=== PATIENT | male | born 1950 | race Caucasian/White ===

== ENCOUNTER 2020-10-26 14:09 | Inpatient (IN) ==
[2020-10-26] MEDS ORDERED: ZALEPLON 5 MG CAPSULE PO PRN (14:11)
[2020-10-26] MEDS ORDERED: MAGNESIUM SULF RIDER 4 GM/100 ML PREMIX IV PRN (14:11)
[2020-10-26] MEDS ORDERED: POTASSIUM CHLORIDE 20 MEQ TABLET PO PRN (14:11)
[2020-10-26] MEDS ORDERED: MAGNESIUM SULF RIDER 2 GM/50 ML PREMIX IV PRN (14:11)
[2020-10-26] MEDS ORDERED: hydrALAZINE 20 MG/1 ML VIAL IV PRN (14:11)
[2020-10-26] MEDS ORDERED: ONDANSETRON 4 MG/2 ML VIAL IV PRN (14:11)
[2020-10-26] MEDS ORDERED: ALUMINUM/MAGNES/SIMETH MAX STR 30 ML UDCUP PO PRN (14:11)
[2020-10-26] MEDS ORDERED: MORPHINE 4 MG/1 ML VIAL IV PRN (14:11)
[2020-10-26] MEDS ORDERED: BISACODYL 5 MG TABLET PO PRN (14:11)
[2020-10-26] MEDS ORDERED: NITROGLYCERIN SL 0.4 MG TABLET SL PRN (14:14)
[2020-10-26 15:59] LABS: Basophils % 0.2 % (0.0-0.8); Hematocrit 49.8 VOL% (42.0-52.0); Hemoglobin 16.4 GM/DL (14.0-18.0); Immature Granulocytes % 1.2 %; Immature Granulocytes Absolute 0.15 #; Lymphocytes # 1.8 10*3/uL (1.4-4.0); Lymphocytes % 14.4 % (21.2-54.2); Mean Corpuscular HGB Conc 32.9 GM/DL (32-36); Mean Corpuscular Volume 90.2 FL (87-102); Mean Platelet Volume 8.2 FL (9.6-12.0); Monocytes % 8.5 % (1.7-12.7); Neutrophils % 75.7 % (38.7-73.9); Platelet Count 251 T/CUMM (130-400); Red Blood Count 5.52 MC/CUMM (3.8-5.5); Red Cell Distribution Width 14.3 % (9.3-17.3); White Blood Count 12.8 T/CUMM (4-12)
[2020-10-26] MEDS: ENOXAPARIN 40 MG/0.4 ML SYRINGE SUBCUT SCH (16:07)
[2020-10-26] MEDS: PANTOPRAZOLE 40 MG TABLET PO SCH (16:07)
[2020-10-26 16:11] LABS: Albumin 3.2 G/DL (3.4-5.0); Osmolality,Calculated 272.1 MOS/KG (273-304); Potassium 4.2 MMOL/L (3.5-5.1); Total Protein 6.1 G/DL (6.4-8.2)
[2020-10-26] MEDS ORDERED: IBUPROFEN 400 MG TABLET PO PRN (20:58)
[2020-10-26] MEDS: ATORVASTATIN 80 MG TABLET PO SCH (21:32)
[2020-10-27 05:18] LABS: Basophils % 0.2 % (0.0-0.8); Eosinophils # 0.1 10*3/uL (0.0-0.87); Eosinophils % 0.8 % (0.00-10.9); Hematocrit 46.5 VOL% (42.0-52.0); Hemoglobin 15.3 GM/DL (14.0-18.0); Lymphocytes # 2.5 10*3/uL (1.4-4.0); Lymphocytes % 25.3 % (21.2-54.2); Mean Corpuscular HGB Conc 32.9 GM/DL (32-36); Mean Platelet Volume 8.4 FL (9.6-12.0); Monocytes % 9.6 % (1.7-12.7); Neutrophils % 63.1 % (38.7-73.9); Platelet Count 212 T/CUMM (130-400); Red Blood Count 5.11 MC/CUMM (3.8-5.5); Red Cell Distribution Width 14.1 % (9.3-17.3); White Blood Count 9.8 T/CUMM (4-12)
[2020-10-27 05:42] LABS: Calcium 8.8 MG/DL (8.5-10.1); Osmolality,Calculated 268.4 MOS/KG (273-304); Risk Ratio 2.64; VLDL CHOLESTEROL 23.4 MG/DL
[2020-10-27 05:50] LABS: Lymphocytes 24 % (20-55); Platelet Estimate Adequate; Segmented Neutrophils 74 % (50-85); Total Cells Counted 100
[2020-10-27] MEDS: OMEGA 3 ACID ETHYL ESTERS 1 GM CAPSULE PO SCH (08:13)
[2020-10-27] MEDS: ASPIRIN EC 81 MG TABLET PO SCH (08:13)
[2020-10-27] MEDS: PANTOPRAZOLE 40 MG TABLET PO SCH (08:14)
[2020-10-27] MEDS: METOPROLOL SUCCINATE XL 50 MG TABLET PO SCH (08:14)
[2020-10-27] MEDS: FENOFIBRATE 145 MG TABLET PO SCH (08:14)
[2020-10-27] MEDS ORDERED: MAGNESIUM SULF RIDER 2 GM/50 ML PREMIX IV PRN (09:18)
[2020-10-27] MEDS ORDERED: POTASSIUM CHLORIDE RIDER 10 MEQ/100 ML PREMIX IV PRN (09:18)
[2020-10-27] MEDS: ENOXAPARIN 40 MG/0.4 ML SYRINGE SUBCUT SCH (15:54)
[2020-10-27] MEDS: ATORVASTATIN 80 MG TABLET PO SCH (20:14)
[2020-10-28 05:19] LABS: Basophils % 0.3 % (0.0-0.8); Eosinophils # 0.2 10*3/uL (0.0-0.87); Eosinophils % 2.4 % (0.00-10.9); Hematocrit 43.9 VOL% (42.0-52.0); Hemoglobin 15.1 GM/DL (14.0-18.0); Immature Granulocytes % 0.7 %; Immature Granulocytes Absolute 0.05 #; Lymphocytes # 2.4 10*3/uL (1.4-4.0); Lymphocytes % 33.2 % (21.2-54.2); Mean Corpuscular HGB Conc 34.4 GM/DL (32-36); Mean Corpuscular Volume 87.1 FL (87-102); Mean Platelet Volume 8.6 FL (9.6-12.0); Monocytes % 9.1 % (1.7-12.7); Neutrophils % 54.3 % (38.7-73.9); Platelet Count 178 T/CUMM (130-400); Red Blood Count 5.04 MC/CUMM (3.8-5.5); Red Cell Distribution Width 13.8 % (9.3-17.3); White Blood Count 7.2 T/CUMM (4-12)
[2020-10-28 05:35] LABS: Calcium 8.1 MG/DL (8.5-10.1); Osmolality,Calculated 272.1 MOS/KG (273-304); Potassium 3.9 MMOL/L (3.5-5.1)
[2020-10-28 05:42] LABS: Platelet Estimate Adequate
[2020-10-28 05:43] LABS: Osmolality,Calculated 272.1 MOS/KG (273-304); Potassium 3.9 MMOL/L (3.5-5.1)
[2020-10-28] MEDS ORDERED: SODIUM CHLORIDE 0.9% 1,000 ML IV SCH (06:00)
[2020-10-28] MEDS: METOPROLOL SUCCINATE XL 50 MG TABLET PO SCH (08:09)
[2020-10-28] MEDS: PANTOPRAZOLE 40 MG TABLET PO SCH (09:03)
[2020-10-28] MEDS: ASPIRIN EC 81 MG TABLET PO SCH (09:03)
[2020-10-28] MEDS: FENOFIBRATE 145 MG TABLET PO SCH (09:03)
[2020-10-28] MEDS: OMEGA 3 ACID ETHYL ESTERS 1 GM CAPSULE PO SCH (09:03)
[2020-10-28] MEDS ORDERED: LIDOCAINE 1%/EPI INJ 20 ML VIAL ONE (12:04)
[2020-10-28] MEDS ORDERED: HEPARIN/NACL 0.9% 2 UNITS/ML 2,000 UNIT/1,000 ML BAG IV ONE (12:04)
[2020-10-28] MEDS ORDERED: MIDAZOLAM 2 MG/2 ML VIAL ONE ×2 (12:25→13:52)
[2020-10-28] MEDS ORDERED: NITROGLYCERIN DRIP 50 MG/250 ML BOTTLE IV ONE (12:25)
[2020-10-28] MEDS ORDERED: LIDOCAINE 1% 20 ML VIAL ONE (12:25)
[2020-10-28] MEDS ORDERED: fentaNYL 100 MCG/2 ML VIAL ONE (12:25)
[2020-10-28] MEDS ORDERED: VERAPAMIL 5 MG/2 ML VIAL ONE (12:26)
[2020-10-28] MEDS ORDERED: DIAZEPAM 5 MG TABLET PO ONE (12:30)
[2020-10-28] MEDS ORDERED: diphenhydrAMINE CAP 50 MG CAPSULE PO ONE (12:30)
[2020-10-28] MEDS ORDERED: ENOXAPARIN 60 MG/0.6 ML SYRINGE ONE (13:06)
[2020-10-28] MEDS ORDERED: HYDROmorphone 2 MG/1 ML VIAL ONE (13:52)
[2020-10-28] MEDS ORDERED: ALPRAZolam 0.5 MG TABLET PO PRN (14:04)
[2020-10-28] MEDS ORDERED: BIVALIRUDIN 250 MG VIAL IV ONE (14:27)
[2020-10-28] MEDS: ENOXAPARIN 40 MG/0.4 ML SYRINGE SUBCUT SCH (16:40)
[2020-10-28] MEDS: ATORVASTATIN 80 MG TABLET PO SCH (20:38)
[2020-10-28] MEDS: ASCORBIC ACID 500 MG TABLET PO SCH (20:38)
[2020-10-29 05:05] LABS: Basophils % 0.1 % (0.0-0.8); Eosinophils # 0.1 10*3/uL (0.0-0.87); Eosinophils % 1.8 % (0.00-10.9); Hematocrit 41.7 VOL% (42.0-52.0); Hemoglobin 13.7 GM/DL (14.0-18.0); Immature Granulocytes % 0.7 %; Immature Granulocytes Absolute 0.05 #; Lymphocytes # 2.6 10*3/uL (1.4-4.0); Lymphocytes % 35.6 % (21.2-54.2); Mean Corpuscular HGB Conc 32.9 GM/DL (32-36); Mean Corpuscular Volume 90.1 FL (87-102); Mean Platelet Volume 8.7 FL (9.6-12.0); Monocytes % 8.8 % (1.7-12.7); Platelet Count 176 T/CUMM (130-400); Red Blood Count 4.63 MC/CUMM (3.8-5.5); Red Cell Distribution Width 13.7 % (9.3-17.3); White Blood Count 7.3 T/CUMM (4-12)
[2020-10-29 05:30] LABS: Eosinophils 2 % (0-10); Lymphocytes 29 % (20-55); Platelet Estimate Adequate; Segmented Neutrophils 63 % (50-85); Total Cells Counted 100
[2020-10-29 05:32] LABS: Osmolality,Calculated 276.7 MOS/KG (273-304); Potassium 4.1 MMOL/L (3.5-5.1)
[2020-10-29] MEDS: ASPIRIN EC 81 MG TABLET PO SCH (08:12)
[2020-10-29] MEDS: FENOFIBRATE 145 MG TABLET PO SCH (08:12)
[2020-10-29] MEDS: ASCORBIC ACID 500 MG TABLET PO SCH (08:13)
[2020-10-29] MEDS: OMEGA 3 ACID ETHYL ESTERS 1 GM CAPSULE PO SCH (08:13)
[2020-10-29] MEDS: PANTOPRAZOLE 40 MG TABLET PO SCH (08:13)
[2020-10-29] MEDS: METOPROLOL SUCCINATE XL 50 MG TABLET PO SCH (08:14)
[2020-10-29 11:13] VITALS: BP 97/67
== END 2020-10-29 13:03 | disposition home or self-care (01) | DRG 287 ==
LOC: N.TELES
PROVIDERS: ADMIT Internal Medicine Interventional Cardiology; ATTEND Internal Medicine Interventional Cardiology
PROC: CLCCHCL (ICD-10-PCS; 2020-10-28 13:15)

== ENCOUNTER 2020-11-10 07:00 | Inpatient (IN) ==
[2020-11-10] MEDS ORDERED: DEXTROSE 50% 25 GM/50 ML VIAL IV PRN (08:57)
[2020-11-10] MEDS ORDERED: GLUCAGON 1 MG VIAL IM PRN (08:57)
[2020-11-10 09:46] LABS: ABG Base Excess 1.2 MMOL/L (-2.5-2.5); ABG HCO3 25.4 MMOL/L (20-26); ABG Oxygen Saturation 97.1 % (95-100); ABG PCO2 39.1 MM HG (35-48); ABG PH 7.422 (7.35-7.45); ABG PO2 89.9 MM HG (80-95); ABG TCO2 21.7 MMOL/L (23-27); Allen Test Positive
[2020-11-10] MEDS ORDERED: NITROGLYCERIN SL 0.4 MG TABLET SL PRN (10:04)
[2020-11-10 10:08] LABS: Basophils % 0.2 % (0.0-0.8); Eosinophils # 0.1 10*3/uL (0.0-0.87); Eosinophils % 2.1 % (0.00-10.9); Hemoglobin 15.1 GM/DL (14.0-18.0); Immature Granulocytes % 0.3 %; Immature Granulocytes Absolute 0.02 #; Lymphocytes # 3.4 10*3/uL (1.4-4.0); Lymphocytes % 50.4 % (21.2-54.2); Mean Corpuscular HGB Conc 33.6 GM/DL (32-36); Mean Corpuscular Volume 90.2 FL (87-102); Mean Platelet Volume 8.3 FL (9.6-12.0); Monocytes % 7.4 % (1.7-12.7); Neutrophils % 39.6 % (38.7-73.9); Platelet Count 212 T/CUMM (130-400); Red Blood Count 4.99 MC/CUMM (3.8-5.5); Red Cell Distribution Width 14.5 % (9.3-17.3); White Blood Count 6.7 T/CUMM (4-12)
[2020-11-10 10:32] LABS: Albumin 3.6 G/DL (3.4-5.0); Bilirubin,Total 0.5 MG/DL (0.2-1.0); Calcium 9.5 MG/DL (8.5-10.1); Osmolality,Calculated 278.4 MOS/KG (273-304); Potassium 4.3 MMOL/L (3.5-5.1); Total Protein 7.1 G/DL (6.4-8.2)
[2020-11-10] MEDS: CHLORHEXIDINE 0.12% ORAL RINSE 60 ML BOTTLE SWISH/SPIT SCH ×2 (11:44→20:50)
[2020-11-10] MEDS: CHLORHEXIDINE 4% SOLN 118 ML BOTTLE TOP SCH ×3 (11:44→22:40)
[2020-11-10] MEDS ORDERED: CLORAZEPATE 7.5 MG TABLET PO PRN (13:36)
[2020-11-10] MEDS ORDERED: MORPHINE 4 MG/1 ML VIAL IV PRN (13:37)
[2020-11-10] MEDS ORDERED: MAGNESIUM SULF RIDER 2 GM/50 ML PREMIX IV PRN (14:35)
[2020-11-10] MEDS ORDERED: MAGNESIUM SULF RIDER 4 GM/100 ML PREMIX IV PRN (14:35)
[2020-11-10] MEDS: SODIUM CHLORIDE 0.9% 1,000 ML IV SCH (17:11)
[2020-11-10] MEDS: ASCORBIC ACID 500 MG TABLET PO SCH (20:49)
[2020-11-10] MEDS ORDERED: FENOFIBRATE 145 MG TABLET PO SCH (21:00)
[2020-11-10] MEDS ORDERED: ATORVASTATIN 80 MG TABLET PO SCH (21:00)
[2020-11-10] MEDS ORDERED: PANTOPRAZOLE 40 MG TABLET PO SCH (21:00)
[2020-11-10] MEDS ORDERED: ASPIRIN CHEW 81 MG TABLET PO SCH (21:00)
[2020-11-10] MEDS ORDERED: OMEGA 3 ACID ETHYL ESTERS 1 GM CAPSULE PO SCH (21:00)
[2020-11-11] MEDS ORDERED: PAPAVERINE 60 MG/2 ML VIAL ONE (04:21)
[2020-11-11] MEDS ORDERED: VANCOMYCIN 500 MG VIAL ONE (04:22)
[2020-11-11] MEDS ORDERED: VANCOMYCIN 1,000 MG VIAL ONE (04:22)
[2020-11-11] MEDS ORDERED: CEFUROXIME INJ 1,500 MG in SODIUM CHLORIDE 0.9% 100 ML IV ONE (05:00)
[2020-11-11] MEDS ORDERED: DIAZEPAM 5 MG TABLET PO ONE (05:06)
[2020-11-11] MEDS ORDERED: FAMOTIDINE 20 MG TABLET PO ONE (05:07)
[2020-11-11] MEDS ORDERED: MIDAZOLAM 10 MG/2 ML VIAL ONE (05:43)
[2020-11-11] MEDS ORDERED: SUFentanil 250 MCG/5 ML AMP ONE (05:44)
[2020-11-11] MEDS ORDERED: SODIUM CHLORIDE 0.9% 1,000 ML IV ONE (05:55)
[2020-11-11] MEDS ORDERED: LIDOCAINE 2% 5 ML VIAL ONE ×2 (05:55→10:52)
[2020-11-11] MEDS ORDERED: SEVOFLURANE 1 UNIT/15 MINUTE INH ONE ×4 (05:55→11:08)
[2020-11-11] MEDS ORDERED: ETOMIDATE 40 MG/20 ML VIAL IV ONE (05:55)
[2020-11-11] MEDS ORDERED: LACTATED RINGERS 0 ML IV ONE (05:55)
[2020-11-11] MEDS ORDERED: HEPARIN/NACL 0.9% 2 UNITS/ML 1,000 UNIT/500 ML BAG IV ONE (05:55)
[2020-11-11] MEDS ORDERED: PHENYLEPHRINE 1 MG/10 ML SYRINGE IV ONE (05:55)
[2020-11-11] MEDS ORDERED: PHENYLEPHRINE DRIP 20 MG/250 ML PREMIX IV ONE (05:55)
[2020-11-11] MEDS ORDERED: AMINOCAPROIC ACID 5,000 MG/20 ML VIAL ONE (05:55)
[2020-11-11] MEDS ORDERED: VECURONIUM 10 MG VIAL IV ONE (05:55)
[2020-11-11 07:55] LABS: ABG Base Excess 1.6 MMOL/L (-2.5-2.5); ABG HCO3 25.8 MMOL/L (20-26); ABG PCO2 34.1 MM HG (35-48); ABG PH 7.468 (7.35-7.45); ABG TCO2 21.5 MMOL/L (23-27); Glucose Heart Surgery 112 MG/DL (74-106); Ionized Calcium Arterial 1.13 MMOL/L (1.21-1.46); PCO2 Patient Temp Arterial 34.1 MMHG; PH Patient Temp Arterial 7.468; Patient Temperature 37 CELCIUS; Potassium Heart/CVR 3.4 MMOL/L (3.5-5.1); Sodium Heart/CVR 140 MMOL/L (135-145)
[2020-11-11 08:17] LABS: Bilirubin,Urine Negative (Negative); Blood, Urine Negative (Negative); Glucose,Urine (UA) Negative (Negative); Ketones,Urine Negative (Negative); Mucus,Urine Occasional /LPF (Occasional); Nitrite,Urine Negative (Negative); Protein,Urine Negative; RBC,Urine 1 /HPF (0-4); Squamous Epithelial Cell,Urine Occasional /HPF (0-10); Urine Appearance CLEAR (Clear); Urine Color Yellow (Yellow); Urine Specific Gravity 1.008 (1.001-1.035); Urine Urobilinogen < 2.0 EU/DL (0.2-1.0)
[2020-11-11] MEDS ORDERED: MIDAZOLAM 2 MG/2 ML VIAL ONE ×3 (08:25→08:26)
[2020-11-11 09:23] LABS: Hematocrit Heart Surgery 24.1 PERCENT (42-52); Hemoglobin Heart Surgery 7.7 G/DL (14.0-18.0); PH Patient Temp Venous 7.516; PO2 Patient Temp Venous 43.4 MM HG; Potassium Heart/CVR 4.4 MMOL/L (3.5-5.1); VBG Base Excess 0.3 MEQ/L (0-4); VBG HCO3 24.6 MEQ/L (24-28); VBG Oxygen Saturation 88.5 %; VBG PCO2 32.3 MMHG (41-51); VBG PH 7.471; VBG PO2 53.1 MMHG (17-40)
[2020-11-11] MEDS ORDERED: POTASSIUM CHLORIDE RIDER 20 MEQ/100 ML PREMIX IV ONE (09:25)
[2020-11-11] MEDS ORDERED: PHENYLEPHRINE DRIP 40 MG/250 ML PREMIX IV ONE (09:26)
[2020-11-11] MEDS ORDERED: ALBUMIN 5% 25.0 GM/500 ML VIAL IV ONE (09:26)
[2020-11-11] MEDS ORDERED: NITROGLYCERIN DRIP 50 MG/250 ML BOTTLE IV ONE (09:39)
[2020-11-11 09:55] LABS: Hematocrit Heart Surgery 26.5 PERCENT (42-52); Hemoglobin Heart Surgery 8.5 G/DL (14.0-18.0); PCO2 Patient Temp Venous 26.8 MM HG; PH Patient Temp Venous 7.541; PO2 Patient Temp Venous 38.9 MM HG; Potassium Heart/CVR 3.8 MMOL/L (3.5-5.1); VBG Base Excess 1.1 MEQ/L (0-4); VBG HCO3 25.2 MEQ/L (24-28); VBG Oxygen Saturation 85.5 %; VBG PCO2 30.9 MMHG (41-51); VBG PH 7.496; VBG PO2 47.9 MMHG (17-40); VBG Total CO2 22.1 MMOL/L
[2020-11-11 10:25] LABS: Hematocrit Heart Surgery 28.6 PERCENT (42-52); Hemoglobin Heart Surgery 9.2 G/DL (14.0-18.0); PCO2 Patient Temp Venous 32.6 MM HG; PH Patient Temp Venous 7.461; PO2 Patient Temp Venous 43.1 MM HG; Potassium Heart/CVR 3.9 MMOL/L (3.5-5.1); VBG Base Excess -0.1 MEQ/L (0-4); VBG HCO3 24.1 MEQ/L (24-28); VBG Oxygen Saturation 79.3 %; VBG PCO2 32.6 MMHG (41-51); VBG PH 7.461; VBG PO2 43.1 MMHG (17-40); VBG Total CO2 21.4 MMOL/L
[2020-11-11] MEDS ORDERED: THROMBIN TOPICAL (RECOMBINANT) 5,000 UNIT VIAL TOP ONE (10:25)
[2020-11-11] MEDS ORDERED: CALCIUM CHLORIDE 1,000 MG/10 ML VIAL IV ONE (10:42)
[2020-11-11] MEDS ORDERED: DEXTROSE 5% KCL 20 MEQ 20 MEQ/1,000 ML BAG IV ONE (10:52)
[2020-11-11] MEDS ORDERED: PROTAMINE SULFATE 250 MG/25 ML VIAL IV ONE (10:52)
[2020-11-11] MEDS ORDERED: ALBUMIN 25% 25 GM/100 ML VIAL IV ONE (10:52)
[2020-11-11] MEDS ORDERED: methylPREDNISolone SOD SUC 1,000 MG/8 ML VIAL ONE (10:52)
[2020-11-11] MEDS ORDERED: MAGNESIUM SULFATE 5 GM/10 ML VIAL IV ONE (10:52)
[2020-11-11] MEDS ORDERED: MANNITOL 100 GM/500 ML BAG IV ONE (10:52)
[2020-11-11 10:53] LABS: ABG Base Excess -0.7 MMOL/L (-2.5-2.5); ABG HCO3 23.9 MMOL/L (20-26); ABG PCO2 35.6 MM HG (35-48); ABG PH 7.423 (7.35-7.45); ABG TCO2 20.9 MMOL/L (23-27); Glucose Heart Surgery 290 MG/DL (74-106); Hematocrit Heart Surgery 33.2 PERCENT (42-52); Hemoglobin Heart Surgery 10.7 G/DL (14.0-18.0); Ionized Calcium Arterial 1.25 MMOL/L (1.21-1.46); PCO2 Patient Temp Arterial 35.6 MMHG; PH Patient Temp Arterial 7.423; Patient Temperature 37 CELCIUS; Potassium Heart/CVR 3.4 MMOL/L (3.5-5.1); Sodium Heart/CVR 132 MMOL/L (135-145)
[2020-11-11] MEDS ORDERED: PROTAMINE SULFATE 50 MG/5 ML VIAL IV ONE (10:53)
[2020-11-11] MEDS ORDERED: HEPARIN 10,000 UNIT/10 ML VIAL ONE (10:53)
[2020-11-11] MEDS ORDERED: FUROSEMIDE 20 MG/2 ML VIAL ONE (10:53)
[2020-11-11] MEDS ORDERED: SODIUM BICARBONATE 50 MEQ/50 ML VIAL IV ONE (10:53)
[2020-11-11] MEDS: SODIUM CHLORIDE 0.9% 1,000 ML IV SCH (11:05)
[2020-11-11] MEDS: CHLORHEXIDINE 0.12% ORAL RINSE 60 ML BOTTLE SWISH/SPIT SCH ×2 (11:05→20:37)
[2020-11-11] MEDS: ASCORBIC ACID 500 MG TABLET PO SCH (11:05)
[2020-11-11] MEDS ORDERED: LACTATED RINGERS 1,000 ML IV ONE (11:08)
[2020-11-11] MEDS ORDERED: ESMOLOL 100 MG/10 ML VIAL IV ONE (11:20)
[2020-11-11] MEDS ORDERED: MIDAZOLAM 2 MG/2 ML VIAL IV PRN (11:31)
[2020-11-11] MEDS ORDERED: LACTATED RINGERS 250 ML IV PRN (11:31)
[2020-11-11] MEDS ORDERED: MIDAZOLAM 10 MG/2 ML VIAL IV PRN (11:31)
[2020-11-11] MEDS ORDERED: DEXTROSE 50% 25 GM/50 ML VIAL IV PRN ×2 (11:31)
[2020-11-11] MEDS ORDERED: MAGNESIUM SULF RIDER 4 GM/100 ML PREMIX IV PRN (11:31)
[2020-11-11] MEDS ORDERED: INSULIN REGULAR 100 UNIT/ML IV ONE (11:31)
[2020-11-11] MEDS ORDERED: VECURONIUM 10 MG VIAL IV PRN ×2 (11:31)
[2020-11-11] MEDS ORDERED: MAGNESIUM SULF RIDER 2 GM/50 ML PREMIX IV PRN (11:31)
[2020-11-11] MEDS ORDERED: POTASSIUM CHLORIDE RIDER 10 MEQ/100 ML PREMIX IV PRN (11:31)
[2020-11-11] MEDS ORDERED: NITROPRUSSIDE 100 MG in DEXTROSE 5% 250 ML IV PRN (11:31)
[2020-11-11] MEDS ORDERED: INSULIN REGULAR 100 UNIT/ML IV PRN (11:31)
[2020-11-11] MEDS ORDERED: MORPHINE 10 MG/1 ML VIAL IV PRN (11:31)
[2020-11-11] MEDS ORDERED: CHLORHEXIDINE 4% SOLN 118 ML BOTTLE TOP PRN (11:31)
[2020-11-11] MEDS ORDERED: INSULIN REGULAR DRIP 100 ML IV SCH (11:31)
[2020-11-11] MEDS ORDERED: ACETAMINOPHEN 650 MG SUPP RECTAL PRN (11:31)
[2020-11-11] MEDS ORDERED: CALCIUM CHLORIDE 1,000 MG/10 ML SYRINGE IV PRN (11:31)
[2020-11-11] MEDS: PHENYLEPHRINE DRIP 40 MG/250 ML PREMIX IV PRN (11:35)
[2020-11-11] MEDS: SODIUM CHLORIDE 0.45% 1,000 ML IV SCH ×2 (11:35)
[2020-11-11] MEDS: LACTATED RINGERS 1,000 ML IV PRN ×3 (11:35→15:00)
[2020-11-11] MEDS: POTASSIUM CHLORIDE RIDER 20 MEQ/100 ML PREMIX IV PRN ×7 (12:15→23:13)
[2020-11-11 12:20] LABS: ABG Base Excess -0.3 MMOL/L (-2.5-2.5); ABG HCO3 24.2 MMOL/L (20-26); ABG PCO2 34.1 MM HG (35-48); ABG PH 7.442 (7.35-7.45); ABG TCO2 20.5 MMOL/L (23-27); Glucose Heart Surgery 232 MG/DL (74-106); Hematocrit Heart Surgery 37.6 PERCENT (42-52); Hemoglobin Heart Surgery 12.2 G/DL (14.0-18.0); Potassium Heart/CVR 2.9 MMOL/L (3.5-5.1)
[2020-11-11 12:23] LABS: Eosinophils # 0.1 10*3/uL (0.0-0.87); Eosinophils % 1.1 % (0.00-10.9); Hematocrit 32.6 VOL% (42.0-52.0); Immature Granulocytes % 0.7 %; Immature Granulocytes Absolute 0.06 #; Mean Corpuscular HGB Conc 33.7 GM/DL (32-36); Mean Corpuscular Volume 89.6 FL (87-102); Mean Platelet Volume 8.3 FL (9.6-12.0); Neutrophils % 69.2 % (38.7-73.9); Platelet Count 179 T/CUMM (130-400); Red Blood Count 3.64 MC/CUMM (3.8-5.5); Red Cell Distribution Width 14.3 % (9.3-17.3); White Blood Count 8.4 T/CUMM (4-12)
[2020-11-11 12:35] LABS: INR 1.2; PT Patient Result 13.5 SECS (10.5-12.0); Partial Thromboplastin Time 24.5 SECS (23.9-33.8)
[2020-11-11 12:44] LABS: Albumin 2.8 G/DL (3.4-5.0); Bilirubin,Total 1.7 MG/DL (0.2-1.0); Calcium 7.4 MG/DL (8.5-10.1); Osmolality,Calculated 281.5 MOS/KG (273-304); Total Protein 4.7 G/DL (6.4-8.2)
[2020-11-11 12:47] LABS: High Sensitive Troponin I* 5328.2 ng/L (0-78)
[2020-11-11] MEDS: ALBUMIN 5% 12.5 GM/250 ML VIAL IV PRN ×2 (13:15→14:00)
[2020-11-11 14:05] LABS: ABG Base Excess 0.3 MMOL/L (-2.5-2.5); ABG HCO3 24.8 MMOL/L (20-26); ABG PCO2 30.5 MM HG (35-48); ABG PH 7.487 (7.35-7.45); ABG TCO2 20.8 MMOL/L (23-27); Glucose Heart Surgery 190 MG/DL (74-106); Hematocrit Heart Surgery 31.6 PERCENT (42-52); Hemoglobin Heart Surgery 10.2 G/DL (14.0-18.0); Potassium Heart/CVR 3.5 MMOL/L (3.5-5.1)
[2020-11-11] MEDS: KETOROLAC 30 MG/1 ML VIAL IV SCH ×2 (15:15→20:34)
[2020-11-11 16:18] LABS: ABG Base Excess -5.5 MMOL/L (-2.5-2.5); ABG HCO3 19.9 MMOL/L (20-26); ABG Oxygen Saturation 99.5 % (95-100); ABG PCO2 31.5 MM HG (35-48); ABG PH 7.383 (7.35-7.45); ABG TCO2 17.4 MMOL/L (23-27); Glucose Heart Surgery 208 MG/DL (74-106); Hematocrit Heart Surgery 26.3 PERCENT (42-52); Hemoglobin Heart Surgery 8.5 G/DL (14.0-18.0); Potassium Heart/CVR 3.3 MMOL/L (3.5-5.1)
[2020-11-11 17:42] LABS: ABG Base Excess -6.5 MMOL/L (-2.5-2.5); ABG HCO3 19.2 MMOL/L (20-26); ABG Oxygen Saturation 99.2 % (95-100); ABG PCO2 36.1 MM HG (35-48); ABG PH 7.327 (7.35-7.45); Glucose Heart Surgery 239 MG/DL (74-106); Hematocrit Heart Surgery 34.7 PERCENT (42-52); Hemoglobin Heart Surgery 11.3 G/DL (14.0-18.0); Potassium Heart/CVR 4.2 MMOL/L (3.5-5.1)
[2020-11-11] MEDS: MORPHINE 4 MG/1 ML VIAL IV PRN (17:44)
[2020-11-11 19:00] LABS: Hematocrit Heart Surgery 33.9 PERCENT (42-52); PCO2 Patient Temp Venous 39.8 MM HG; PH Patient Temp Venous 7.265; PO2 Patient Temp Venous 54.1 MM HG; Potassium Heart/CVR 3.7 MMOL/L (3.5-5.1); VBG Base Excess -8.5 MEQ/L (0-4); VBG HCO3 17.4 MEQ/L (24-28); VBG Oxygen Saturation 82.8 %; VBG PCO2 39.8 MMHG (41-51); VBG PH 7.265; VBG PO2 54.1 MMHG (17-40); VBG Total CO2 16.6 MMOL/L
[2020-11-11 20:11] LABS: ABG Base Excess -7.8 MMOL/L (-2.5-2.5); ABG HCO3 18.2 MMOL/L (20-26); ABG Oxygen Saturation 98.9 % (95-100); ABG PCO2 36.3 MM HG (35-48); ABG PH 7.302 (7.35-7.45); ABG TCO2 16.2 MMOL/L (23-27); Glucose Heart Surgery 190 MG/DL (74-106); Hematocrit Heart Surgery 35.3 PERCENT (42-52); Hemoglobin Heart Surgery 11.5 G/DL (14.0-18.0); Potassium Heart/CVR 3.7 MMOL/L (3.5-5.1)
[2020-11-11] MEDS: CEFUROXIME INJ 1,500 MG in SODIUM CHLORIDE 0.9% 100 ML IV SCH (20:24)
[2020-11-11 20:34] LABS: CKMB % 3.5 %
[2020-11-11 20:36] LABS: High Sensitive Troponin I* 3891.1 ng/L (0-78)
[2020-11-11 22:01] LABS: ABG Base Excess -5.6 MMOL/L (-2.5-2.5); ABG HCO3 19.9 MMOL/L (20-26); ABG Oxygen Saturation 99.4 % (95-100); ABG PCO2 34.9 MM HG (35-48); ABG PH 7.351 (7.35-7.45); ABG TCO2 17.4 MMOL/L (23-27); Glucose Heart Surgery 157 MG/DL (74-106); Hematocrit Heart Surgery 34.7 PERCENT (42-52); Hemoglobin Heart Surgery 11.3 G/DL (14.0-18.0); Potassium Heart/CVR 4.7 MMOL/L (3.5-5.1)
[2020-11-11 23:09] LABS: ABG Base Excess -3.9 MMOL/L (-2.5-2.5); ABG HCO3 21.2 MMOL/L (20-26); ABG Oxygen Saturation 99.2 % (95-100); ABG PCO2 36.6 MM HG (35-48); ABG PH 7.366 (7.35-7.45); ABG TCO2 18.8 MMOL/L (23-27); Glucose Heart Surgery 139 MG/DL (74-106); Hematocrit Heart Surgery 34.6 PERCENT (42-52); Hemoglobin Heart Surgery 11.2 G/DL (14.0-18.0); Potassium Heart/CVR 4.1 MMOL/L (3.5-5.1)
[2020-11-12] MEDS: ALBUMIN 5% 12.5 GM/250 ML VIAL IV PRN (00:03)
[2020-11-12 00:08] LABS: ABG Base Excess -4.2 MMOL/L (-2.5-2.5); ABG Oxygen Saturation 99.5 % (95-100); ABG PCO2 35.8 MM HG (35-48); ABG PH 7.367 (7.35-7.45); ABG TCO2 18.4 MMOL/L (23-27); Glucose Heart Surgery 125 MG/DL (74-106); Hematocrit Heart Surgery 35.1 PERCENT (42-52); Hemoglobin Heart Surgery 11.4 G/DL (14.0-18.0); Potassium Heart/CVR 4.2 MMOL/L (3.5-5.1)
[2020-11-12] MEDS: MORPHINE 4 MG/1 ML VIAL IV PRN (00:51)
[2020-11-12] MEDS: LACTATED RINGERS 1,000 ML IV PRN ×2 (01:00→06:54)
[2020-11-12] MEDS ORDERED: AMIODARONE INJ 50 MG in DEXTROSE 5% 100 ML IV ONE (01:03)
[2020-11-12] MEDS ORDERED: AMIODARONE INJ 450 MG in DEXTROSE 5% 241 ML IV SCH (01:30)
[2020-11-12] MEDS: oxyCODONE/ACETAMINOPHEN 5-325 MG TABLET PO PRN ×2 (01:58→20:44)
[2020-11-12 02:04] LABS: ABG Base Excess -2.5 MMOL/L (-2.5-2.5); ABG HCO3 22.3 MMOL/L (20-26); ABG Oxygen Saturation 98.5 % (95-100); ABG PCO2 37.3 MM HG (35-48); ABG PH 7.383 (7.35-7.45); ABG TCO2 20.2 MMOL/L (23-27); Glucose Heart Surgery 112 MG/DL (74-106); Hematocrit Heart Surgery 31.3 PERCENT (42-52); Hemoglobin Heart Surgery 10.1 G/DL (14.0-18.0); Potassium Heart/CVR 4.1 MMOL/L (3.5-5.1)
[2020-11-12] MEDS: POTASSIUM CHLORIDE RIDER 20 MEQ/100 ML PREMIX IV PRN ×2 (02:55→05:48)
[2020-11-12] MEDS: KETOROLAC 30 MG/1 ML VIAL IV SCH ×4 (02:56→20:45)
[2020-11-12] MEDS ORDERED: HYDROmorphone 2 MG/1 ML VIAL IV PRN (03:50)
[2020-11-12] MEDS ORDERED: oxyCODONE/ACETAMINOPHEN 5-325 MG TABLET PO ONE (04:10)
[2020-11-12] MEDS ORDERED: FUROSEMIDE 40 MG/4 ML VIAL IV ONE (04:41)
[2020-11-12 05:08] LABS: ABG Base Excess -2.9 MMOL/L (-2.5-2.5); ABG HCO3 22.1 MMOL/L (20-26); ABG Oxygen Saturation 96.9 % (95-100); ABG PCO2 39.1 MM HG (35-48); ABG PO2 100.9 MM HG (80-95); ABG TCO2 23.3 MMOL/L (23-27); Glucose Heart Surgery 129 MG/DL (74-106); Potassium Heart/CVR 4.4 MMOL/L (3.5-5.1)
[2020-11-12 05:13] LABS: Basophils % 0.1 % (0.0-0.8); Hematocrit 29.9 VOL% (42.0-52.0); Hemoglobin 10.4 GM/DL (14.0-18.0); Immature Granulocytes % 0.6 %; Immature Granulocytes Absolute 0.08 #; Lymphocytes # 1.4 10*3/uL (1.4-4.0); Lymphocytes % 9.5 % (21.2-54.2); Mean Corpuscular HGB Conc 34.8 GM/DL (32-36); Mean Corpuscular Volume 88.5 FL (87-102); Mean Platelet Volume 8.6 FL (9.6-12.0); Neutrophils % 81.8 % (38.7-73.9); Platelet Count 176 T/CUMM (130-400); Red Blood Count 3.38 MC/CUMM (3.8-5.5); Red Cell Distribution Width 15.1 % (9.3-17.3); White Blood Count 14.4 T/CUMM (4-12)
[2020-11-12 05:38] LABS: CKMB % 2.6 %
[2020-11-12 05:39] LABS: High Sensitive Troponin I* 2714.2 ng/L (0-78)
[2020-11-12 05:40] LABS: Albumin 3.2 G/DL (3.4-5.0); Bilirubin,Direct 0.43 MG/DL (0.0-0.20); Bilirubin,Total 1.1 MG/DL (0.2-1.0); Calcium 7.5 MG/DL (8.5-10.1); Osmolality,Calculated 281.3 MOS/KG (273-304); Potassium 4.6 MMOL/L (3.5-5.1); Total Protein 4.8 G/DL (6.4-8.2)
[2020-11-12 05:43] LABS: Anisocytosis 1+; Band Neutrophils 31 % (0-10); Lymphocytes 11 % (20-55); Platelet Estimate Normal; Segmented Neutrophils 56 % (50-85); Total Cells Counted 100
[2020-11-12] MEDS ORDERED: DEXTROSE 50% 25 GM/50 ML VIAL IV PRN (06:22)
[2020-11-12] MEDS ORDERED: GLUCAGON 1 MG VIAL IM PRN (06:22)
[2020-11-12] MEDS: CEFUROXIME INJ 1,500 MG in SODIUM CHLORIDE 0.9% 100 ML IV SCH ×2 (07:50→20:03)
[2020-11-12] MEDS: ONDANSETRON 4 MG/2 ML VIAL IV PRN ×2 (11:15→17:48)
[2020-11-12] MEDS: PHENYLEPHRINE DRIP 40 MG/250 ML PREMIX IV PRN (12:00)
[2020-11-12] MEDS: ASCORBIC ACID 500 MG TABLET PO SCH ×2 (12:15→20:44)
[2020-11-12] MEDS: ASPIRIN EC 325 MG TABLET PO SCH (12:15)
[2020-11-12] MEDS: AMIODARONE 200 MG TABLET PO SCH ×2 (12:15→20:43)
[2020-11-12 13:22] LABS: High Sensitive Troponin I* 2197.6 ng/L (0-78)
[2020-11-12] MEDS: INSULIN REGULAR 100 UNIT/ML SUBCUT SCH ×3 (16:45→20:44)
[2020-11-12] MEDS: CHLORHEXIDINE 0.12% ORAL RINSE 60 ML BOTTLE SWISH/SPIT SCH ×2 (16:46→20:44)
[2020-11-12] MEDS: SODIUM CHLORIDE 0.45% 1,000 ML IV SCH ×2 (16:48)
[2020-11-12] MEDS ORDERED: ZALEPLON 5 MG CAPSULE PO PRN (20:53)
[2020-11-13] MEDS: PHENYLEPHRINE DRIP 40 MG/250 ML PREMIX IV PRN (01:01)
[2020-11-13] MEDS: KETOROLAC 30 MG/1 ML VIAL IV SCH ×4 (03:12→20:29)
[2020-11-13 05:07] LABS: Basophils % 0.1 % (0.0-0.8); Eosinophils % 0.1 % (0.00-10.9); Hematocrit 30.5 VOL% (42.0-52.0); Hemoglobin 9.8 GM/DL (14.0-18.0); Immature Granulocytes % 0.8 %; Immature Granulocytes Absolute 0.13 #; Lymphocytes # 3.1 10*3/uL (1.4-4.0); Lymphocytes % 19.2 % (21.2-54.2); Mean Corpuscular HGB Conc 32.1 GM/DL (32-36); Mean Corpuscular Volume 92.4 FL (87-102); Mean Platelet Volume 8.6 FL (9.6-12.0); Monocytes % 7.1 % (1.7-12.7); Neutrophils % 72.7 % (38.7-73.9); Platelet Count 187 T/CUMM (130-400); Red Cell Distribution Width 15.3 % (9.3-17.3)
[2020-11-13 05:25] LABS: Albumin 2.8 G/DL (3.4-5.0); Bilirubin,Direct 0.29 MG/DL (0.0-0.20); Bilirubin,Total 0.7 MG/DL (0.2-1.0); Calcium 7.3 MG/DL (8.5-10.1); Osmolality,Calculated 279.5 MOS/KG (273-304); Potassium 4.6 MMOL/L (3.5-5.1); Total Protein 5.2 G/DL (6.4-8.2)
[2020-11-13 05:31] LABS: Band Neutrophils 2 % (0-10); Lymphocytes 16 % (20-55); Segmented Neutrophils 79 % (50-85); Total Cells Counted 100
[2020-11-13 05:32] LABS: Microcytosis 1+
[2020-11-13] MEDS ORDERED: FUROSEMIDE 40 MG/4 ML VIAL IV ONE (06:00)
[2020-11-13] MEDS: INSULIN REGULAR 100 UNIT/ML SUBCUT SCH ×2 (08:09→12:34)
[2020-11-13] MEDS: AMIODARONE 200 MG TABLET PO SCH ×2 (08:22→20:29)
[2020-11-13] MEDS: CHLORHEXIDINE 0.12% ORAL RINSE 60 ML BOTTLE SWISH/SPIT SCH ×2 (08:22→20:29)
[2020-11-13] MEDS: ASCORBIC ACID 500 MG TABLET PO SCH ×2 (08:22→20:29)
[2020-11-13] MEDS: ASPIRIN EC 325 MG TABLET PO SCH (08:22)
[2020-11-13] MEDS ORDERED: METOCLOPRAMIDE 10 MG/2 ML VIAL IV SCH (09:00)
[2020-11-13] MEDS ORDERED: ONDANSETRON 4 MG/2 ML VIAL IV PRN (12:30)
[2020-11-13] MEDS ORDERED: SODIUM CHLOR 0.45% KCL 20 MEQ 20 MEQ/1,000 ML BAG IV SCH (12:30)
[2020-11-13] MEDS ORDERED: ALUMINUM/MAGNES/SIMETH MAX STR 30 ML UDCUP PO PRN (12:30)
[2020-11-13] MEDS ORDERED: GLUCAGON 1 MG VIAL IM PRN (12:30)
[2020-11-13] MEDS ORDERED: MAGNESIUM SULF RIDER 4 GM/100 ML PREMIX IV PRN (12:30)
[2020-11-13] MEDS ORDERED: DEXTROSE 50% 25 GM/50 ML VIAL IV PRN (12:30)
[2020-11-13] MEDS ORDERED: ACETAMINOPHEN 325 MG TABLET PO PRN (12:30)
[2020-11-13] MEDS ORDERED: MAGNESIUM HYDROXIDE SUSP 30 ML UDCUP PO PRN (12:30)
[2020-11-13] MEDS ORDERED: MAGNESIUM SULF RIDER 2 GM/50 ML PREMIX IV PRN (12:30)
[2020-11-13] MEDS: METOCLOPRAMIDE 10 MG/2 ML VIAL IV SCH ×2 (12:44→17:38)
[2020-11-13] MEDS: ATORVASTATIN 80 MG TABLET PO SCH (20:29)
[2020-11-14] MEDS: METOCLOPRAMIDE 10 MG/2 ML VIAL IV SCH ×2 (00:30→07:19)
[2020-11-14] MEDS ORDERED: LOPERAMIDE 2 MG CAPSULE PO ONE (01:28)
[2020-11-14] MEDS ORDERED: AMIODARONE INJ 100 MG in DEXTROSE 5% 100 ML IV ONE (01:29)
[2020-11-14] MEDS ORDERED: AMIODARONE INJ 450 MG in DEXTROSE 5% 241 ML IV SCH ×3 (01:30→21:00)
[2020-11-14] MEDS: KETOROLAC 30 MG/1 ML VIAL IV SCH ×4 (03:14→21:22)
[2020-11-14 04:48] LABS: Basophils % 0.1 % (0.0-0.8); Eosinophils # 0.2 10*3/uL (0.0-0.87); Eosinophils % 1.6 % (0.00-10.9); Hematocrit 32.6 VOL% (42.0-52.0); Hemoglobin 10.9 GM/DL (14.0-18.0); Immature Granulocytes % 0.4 %; Immature Granulocytes Absolute 0.04 #; Lymphocytes # 2.5 10*3/uL (1.4-4.0); Lymphocytes % 23.8 % (21.2-54.2); Mean Corpuscular HGB Conc 33.4 GM/DL (32-36); Mean Corpuscular Volume 90.1 FL (87-102); Mean Platelet Volume 8.9 FL (9.6-12.0); Monocytes % 7.8 % (1.7-12.7); Neutrophils % 66.3 % (38.7-73.9); Platelet Count 177 T/CUMM (130-400); Red Blood Count 3.62 MC/CUMM (3.8-5.5); White Blood Count 10.4 T/CUMM (4-12)
[2020-11-14 05:18] LABS: Alanine Aminotransferase 31 U/L (16-61); Albumin 2.7 G/DL (3.4-5.0); Alkaline Phosphatase 43 U/L (45-117); Aspartate Amino Transferase 34 U/L (0-37); Bilirubin,Indirect 0.7 MG/DL (0.0-1.0); Blood Urea Nitrogen 23 MG/DL (7-18); Calcium 8.1 MG/DL (8.5-10.1); Carbon Dioxide 30 MMOL/L (21-32); Estimated Glom Filtration Rate 84 ML/MIN; Glucose 106 MG/DL (74-106); Osmolality,Calculated 282.4 MOS/KG (273-304); Potassium 3.8 MMOL/L (3.5-5.1); Sodium 140 MMOL/L (136-145); Total Protein 5.2 G/DL (6.4-8.2)
[2020-11-14] MEDS ORDERED: FUROSEMIDE 40 MG/4 ML VIAL IV ONE (06:00)
[2020-11-14] MEDS ORDERED: DILTIAZEM INJ 100 MG in SODIUM CHLORIDE 0.9% 100 ML IV SCH (09:00)
[2020-11-14] MEDS: SODIUM CHLORIDE 0.9% 1,000 ML IV SCH ×3 (09:11→15:16)
[2020-11-14] MEDS: APIXABAN 5 MG TABLET PO SCH ×2 (09:15→21:22)
[2020-11-14] MEDS: DOCUSATE SODIUM 100 MG CAPSULE PO SCH (09:21)
[2020-11-14] MEDS: PANTOPRAZOLE 40 MG TABLET PO SCH (09:21)
[2020-11-14] MEDS: CHLORHEXIDINE 0.12% ORAL RINSE 60 ML BOTTLE SWISH/SPIT SCH ×2 (09:22→21:24)
[2020-11-14] MEDS: ASPIRIN EC 325 MG TABLET PO SCH (09:22)
[2020-11-14] MEDS: ASCORBIC ACID 500 MG TABLET PO SCH ×2 (09:22→21:22)
[2020-11-14] MEDS: FERROUS SULFATE 325 MG TABLET PO SCH (09:22)
[2020-11-14] MEDS: ATORVASTATIN 80 MG TABLET PO SCH (21:22)
[2020-11-14] MEDS: ZALEPLON 5 MG CAPSULE PO PRN (21:22)
[2020-11-15] MEDS: KETOROLAC 30 MG/1 ML VIAL IV SCH ×4 (03:04→20:36)
[2020-11-15 05:04] LABS: Basophils % 0.1 % (0.0-0.8); Eosinophils # 0.4 10*3/uL (0.0-0.87); Eosinophils % 4.3 % (0.00-10.9); Hematocrit 33.1 VOL% (42.0-52.0); Immature Granulocytes % 0.5 %; Immature Granulocytes Absolute 0.05 #; Lymphocytes # 2.3 10*3/uL (1.4-4.0); Lymphocytes % 23.3 % (21.2-54.2); Mean Corpuscular HGB Conc 33.2 GM/DL (32-36); Mean Corpuscular Volume 90.7 FL (87-102); Mean Platelet Volume 8.8 FL (9.6-12.0); Monocytes % 8.1 % (1.7-12.7); Neutrophils % 63.7 % (38.7-73.9); Platelet Count 195 T/CUMM (130-400); Red Blood Count 3.65 MC/CUMM (3.8-5.5); Red Cell Distribution Width 14.9 % (9.3-17.3); White Blood Count 9.7 T/CUMM (4-12)
[2020-11-15 05:28] LABS: Alanine Aminotransferase 34 U/L (16-61); Albumin 2.6 G/DL (3.4-5.0); Alkaline Phosphatase 49 U/L (45-117); Aspartate Amino Transferase 32 U/L (0-37); Bilirubin,Indirect 0.6 MG/DL (0.0-1.0); Blood Urea Nitrogen 18 MG/DL (7-18); Calcium 7.9 MG/DL (8.5-10.1); Carbon Dioxide 27 MMOL/L (21-32); Estimated Glom Filtration Rate 84 ML/MIN; Glucose 98 MG/DL (74-106); Osmolality,Calculated 284.1 MOS/KG (273-304); Potassium 3.8 MMOL/L (3.5-5.1); Sodium 142 MMOL/L (136-145); Total Protein 5.2 G/DL (6.4-8.2)
[2020-11-15] MEDS: CHLORHEXIDINE 0.12% ORAL RINSE 60 ML BOTTLE SWISH/SPIT SCH ×2 (08:31→20:36)
[2020-11-15] MEDS: DOCUSATE SODIUM 100 MG CAPSULE PO SCH (08:32)
[2020-11-15] MEDS: ASCORBIC ACID 500 MG TABLET PO SCH ×2 (08:32→20:35)
[2020-11-15] MEDS: PANTOPRAZOLE 40 MG TABLET PO SCH (08:32)
[2020-11-15] MEDS: ASPIRIN EC 325 MG TABLET PO SCH (08:32)
[2020-11-15] MEDS: FERROUS SULFATE 325 MG TABLET PO SCH (08:33)
[2020-11-15] MEDS: APIXABAN 5 MG TABLET PO SCH ×2 (08:33→20:35)
[2020-11-15] MEDS ORDERED: METOPROLOL TARTRATE 25 MG TABLET PO SCH (09:00)
[2020-11-15] MEDS: METOPROLOL TARTRATE 25 MG TABLET PO SCH ×2 (10:37→20:36)
[2020-11-15] MEDS: AMIODARONE 200 MG TABLET PO SCH ×2 (10:37→20:36)
[2020-11-15] MEDS: ATORVASTATIN 80 MG TABLET PO SCH (20:35)
[2020-11-15] MEDS: ZALEPLON 5 MG CAPSULE PO PRN (22:09)
[2020-11-16] MEDS: KETOROLAC 30 MG/1 ML VIAL IV SCH ×2 (02:18→08:13)
[2020-11-16] MEDS: ZALEPLON 5 MG CAPSULE PO PRN (02:24)
[2020-11-16 04:58] LABS: Basophils % 0.1 % (0.0-0.8); Eosinophils # 0.5 10*3/uL (0.0-0.87); Eosinophils % 4.9 % (0.00-10.9); Hematocrit 31.1 VOL% (42.0-52.0); Hemoglobin 10.1 GM/DL (14.0-18.0); Immature Granulocytes % 1.4 %; Immature Granulocytes Absolute 0.13 #; Lymphocytes # 2.4 10*3/uL (1.4-4.0); Lymphocytes % 26.1 % (21.2-54.2); Mean Corpuscular HGB Conc 32.5 GM/DL (32-36); Mean Corpuscular Volume 92.3 FL (87-102); Mean Platelet Volume 8.8 FL (9.6-12.0); Monocytes % 9.1 % (1.7-12.7); Neutrophils % 58.4 % (38.7-73.9); Platelet Count 212 T/CUMM (130-400); Red Blood Count 3.37 MC/CUMM (3.8-5.5); White Blood Count 9.3 T/CUMM (4-12)
[2020-11-16 05:23] LABS: Calcium 8.3 MG/DL (8.5-10.1); Osmolality,Calculated 283.1 MOS/KG (273-304); Potassium 3.8 MMOL/L (3.5-5.1)
[2020-11-16] MEDS ORDERED: AMIODARONE INJ 50 MG in DEXTROSE 5% 100 ML IV ONE (06:13)
[2020-11-16] MEDS: AMIODARONE 200 MG TABLET PO SCH ×2 (08:10→20:31)
[2020-11-16] MEDS: PANTOPRAZOLE 40 MG TABLET PO SCH (08:11)
[2020-11-16] MEDS: APIXABAN 5 MG TABLET PO SCH ×2 (08:11→20:31)
[2020-11-16] MEDS: FERROUS SULFATE 325 MG TABLET PO SCH (08:11)
[2020-11-16] MEDS: ASCORBIC ACID 500 MG TABLET PO SCH ×2 (08:11→20:32)
[2020-11-16] MEDS: METOPROLOL TARTRATE 25 MG TABLET PO SCH ×2 (08:11→20:31)
[2020-11-16] MEDS: CHLORHEXIDINE 0.12% ORAL RINSE 60 ML BOTTLE SWISH/SPIT SCH ×2 (08:12→20:32)
[2020-11-16] MEDS: DOCUSATE SODIUM 100 MG CAPSULE PO SCH (08:13)
[2020-11-16] MEDS: ASPIRIN EC 325 MG TABLET PO SCH (08:14)
[2020-11-16] MEDS: POTASSIUM CHLORIDE 20 MEQ TABLET PO PRN ×2 (08:19→09:47)
[2020-11-16] MEDS ORDERED: MAGNESIUM SULF RIDER 2 GM/50 ML PREMIX IV ONE (09:53)
[2020-11-16] MEDS ORDERED: CLORAZEPATE 3.75 MG TABLET PO PRN (11:28)
[2020-11-16] MEDS ORDERED: diphenhydrAMINE CAP 25 MG CAPSULE PO ONE ×2 (15:30→16:08)
[2020-11-16] MEDS ORDERED: HYDROCORTISONE 2.5% CREAM 30 GM TUBE TOP PRN (16:08)
[2020-11-16] MEDS: ATORVASTATIN 80 MG TABLET PO SCH (20:31)
[2020-11-17 04:38] LABS: Basophils % 0.2 % (0.0-0.8); Eosinophils # 0.4 10*3/uL (0.0-0.87); Eosinophils % 4.4 % (0.00-10.9); Hematocrit 31.1 VOL% (42.0-52.0); Hemoglobin 10.2 GM/DL (14.0-18.0); Immature Granulocytes % 2.3 %; Immature Granulocytes Absolute 0.21 #; Lymphocytes # 2.8 10*3/uL (1.4-4.0); Lymphocytes % 30.7 % (21.2-54.2); Mean Corpuscular HGB Conc 32.8 GM/DL (32-36); Mean Corpuscular Volume 90.9 FL (87-102); Mean Platelet Volume 8.7 FL (9.6-12.0); Monocytes % 9.5 % (1.7-12.7); Neutrophils % 52.9 % (38.7-73.9); Platelet Count 263 T/CUMM (130-400); Red Blood Count 3.42 MC/CUMM (3.8-5.5)
[2020-11-17 05:03] LABS: Alanine Aminotransferase 32 U/L (16-61); Albumin 2.4 G/DL (3.4-5.0); Alkaline Phosphatase 55 U/L (45-117); Aspartate Amino Transferase 28 U/L (0-37); Bilirubin,Indirect 0.8 MG/DL (0.0-1.0); Blood Urea Nitrogen 20 MG/DL (7-18); Calcium 8.4 MG/DL (8.5-10.1); Carbon Dioxide 26 MMOL/L (21-32); Estimated Glom Filtration Rate 74 ML/MIN; Glucose 90 MG/DL (74-106); Osmolality,Calculated 285.1 MOS/KG (273-304); Potassium 4.2 MMOL/L (3.5-5.1); Sodium 142 MMOL/L (136-145); Total Protein 5.3 G/DL (6.4-8.2)
[2020-11-17] MEDS: ASPIRIN EC 325 MG TABLET PO SCH (09:23)
[2020-11-17] MEDS: METOPROLOL TARTRATE 25 MG TABLET PO SCH (09:24)
[2020-11-17] MEDS: AMIODARONE 200 MG TABLET PO SCH (09:24)
[2020-11-17] MEDS: FERROUS SULFATE 325 MG TABLET PO SCH (09:25)
[2020-11-17] MEDS: CHLORHEXIDINE 0.12% ORAL RINSE 60 ML BOTTLE SWISH/SPIT SCH (09:25)
[2020-11-17] MEDS: ASCORBIC ACID 500 MG TABLET PO SCH (09:25)
[2020-11-17] MEDS: DOCUSATE SODIUM 100 MG CAPSULE PO SCH (09:25)
[2020-11-17] MEDS: APIXABAN 5 MG TABLET PO SCH (09:25)
[2020-11-17] MEDS: PANTOPRAZOLE 40 MG TABLET PO SCH (09:25)
[2020-11-17 10:04] VITALS: BP 112/71
== END 2020-11-17 11:43 | disposition home health service (06) | DRG 236 ==
LOC: N.4E 08:54 → N.CVR 11-11 11:24 → N.ICU 11-12 16:36 → N.TELES 11-13 10:52